=== PATIENT | male | born 2000 | race Caucasian/White ===

== ENCOUNTER 2023-08-05 10:11 | Outpatient (OUT) | payer OTHER, SELFPAY ==
--- NOTE | 2023-08-05 | XR_ITS ---
[address] [address] Patient Name: ADRIENNE JOSHI MRN: [id number] date: 2000 Sex: M Assigned Patient Location: [facility] Current Patient Location: RAD Accession/Order Number: [id number] Exam Date: 08/05/2023 10:50 Report Date: 08/05/2023 11:37 At the request of: ARMEN ALLRED Procedure: XR foot SAMREEN min 3V EXAMINATION: XR foot SAMREEN min 3V, XR ankle SAMREEN min 3V HISTORY: BILATERAL FOOT PAIN COMPARISON: 03/31/2020, 07/11/2016 FINDINGS: RIGHT FINDINGS: BONES: 38 degrees of hindfoot valgus. 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 Contour deformity of the distal tibia and fibula could represent degenerative or posttraumatic change. No acute fracture or dislocation SOFT TISSUES: Negative. No visible soft tissue swelling. OTHER: Negative. LEFT FINDINGS: BONES: No acute fracture or dislocation. 13 degrees of hindfoot valgus. Mild degenerative change. SOFT TISSUES: Negative. No visible soft tissue swelling. OTHER: Negative. XR/XR foot SAMREEN min 3V IMPRESSION: RIGHT CONCLUSION: Severe hindfoot valgus and severe tibiotalar joint arthritis with bony remodeling LEFT CONCLUSION: Mild hindfoot valgus and arthritis Electronically authenticated by: KATARINA MARTINS Date: 08/05/2023 11:37
--- NOTE | 2023-08-05 | XR_ITS ---
[address] [address] Patient Name: ADRIENNE JOSHI MRN: [id number] date: 2000 Sex: M Assigned Patient Location: [facility] Current Patient Location: RAD Accession/Order Number: [id number] Exam Date: 08/05/2023 10:50 Report Date: 08/05/2023 11:37 At the request of: ARMEN ALLRED Procedure: XR ankle SAMREEN min 3V EXAMINATION: XR foot SAMREEN min 3V, XR ankle SAMREEN min 3V HISTORY: BILATERAL FOOT PAIN COMPARISON: 03/31/2020, 07/11/2016 FINDINGS: RIGHT FINDINGS: BONES: 38 degrees of hindfoot valgus. 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 Contour deformity of the distal tibia and fibula could represent degenerative or posttraumatic change. No acute fracture or dislocation SOFT TISSUES: Negative. No visible soft tissue swelling. OTHER: Negative. LEFT FINDINGS: BONES: No acute fracture or dislocation. 13 degrees of hindfoot valgus. Mild degenerative change. SOFT TISSUES: Negative. No visible soft tissue swelling. OTHER: Negative. XR/XR ankle SAMREEN min 3V IMPRESSION: RIGHT CONCLUSION: Severe hindfoot valgus and severe tibiotalar joint arthritis with bony remodeling LEFT CONCLUSION: Mild hindfoot valgus and arthritis Electronically authenticated by: KATARINA MARTINS Date: 08/05/2023 11:37
== END 2023-08-05 10:12 | disposition home or self-care (01) ==
LOC: RAD 10:12
PROVIDERS: Visit Provider Podiatrist Foot & Ankle Surgery
DX: M25.572 Pain in left ankle and joints of left foot (principal); M21.072 Valgus deformity, not elsewhere classified, left ankle; M21.071 Valgus deformity, not elsewhere classified, right ankle
CPT/HCPCS: 73610; 73630

== ENCOUNTER 2023-08-12 08:10 | Outpatient (OUT) | payer OTHER, SELFPAY ==
--- NOTE | 2023-08-12 08:13 | CT_ITS ---
The [address] [address] Patient Name: ADRIENNE JOSHI MRN: [id number] date: 2000 Sex: M Assigned Patient Location: CT Current Patient Location: CT Accession/Order Number: [id number] Exam Date: 08/12/2023 08:20 Report Date: 08/12/2023 12:58 At the request of: ARMEN ALLRED Procedure: CT ankle RT wo con Exam Type: CT BILATERAL LOWER EXTREMITIES Exam Date and Time: 08/12/2023 8:20 AM EST Indication: 23 years old Male with chronic pain Comparison: Correlated with studies dating back to 2009 TECHNIQUE: Axial CT images of the bilateral lower extremities were obtained without intravenous contrast. Coronal and sagittal reformatted images were obtained. Dose reduction techniques were achieved by using automated exposure control and/or adjustment of mA and/or kV according to patient size and/or use of iterative reconstruction technique. FINDINGS: Right lower extremity: There is no acute displaced fracture identified. The knee appears congruent. Chronic appearing deformity involving the talus. There is some curvilinear sclerosis involving the lateral aspect of the lateral talar dome potentially reflecting underlying avascular necrosis. There is significant joint space narrowing, subchondral sclerosis and cystic changes. Persistent cortical cleft identified involving the posterior medial tibial plafond (series 7, image 4). Trace effusion is noted. Multiple well-corticated ossific bodies are present about the ankle. Overall, the findings of the tibiotalar joint are unchanged when compared with CT scan dated 03/31/2020. The subtalar joint is congruent with moderate osteoarthritis, which has also not significantly changed. The midfoot is congruent with mild to moderate osteoarthritis, most notable at the talonavicular and naviculocuneiform articulations. Note is made of multiple os peronei. The Lisfranc joint is congruent on this nonweightbearing study. Left lower extremity: No acute displaced fracture identified. The knee is congruent without joint effusion. The tibiotalar joint is congruent. Mild joint space narrowing. Diminutive appearance of the talar dome is present. The subtalar joint is congruent with moderate to severe osteoarthritis. The sinus tarsi is narrowed secondary to anterior marginal osteophytes of the posterior subtalar joint small well-corticated ossific bodies about the ankle are present. The midfoot is congruent with mild osteoarthritis. Lisfranc joint is congruent. Soft tissues are unremarkable. CT/CT ankle RT wo con IMPRESSION: 1. 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 No definite evidence of avascular necrosis. 2. Advanced osteoarthritis of the right tibiotalar with moderate to advanced right subtalar osteoarthritis. This has not really changed when compared with CT scan from 2019. 3. Moderate left tibiotalar osteoarthritis with advanced subtalar osteoarthritis. 4. Advanced midfoot osteoarthritis]. 5. No acute fracture identified. Electronically authenticated by: KEELEY CARVER Date: 08/12/2023 12:58
--- NOTE | 2023-08-12 09:29 | CT_ITS ---
The [address] [address] Patient Name: ADRIENNE JOSHI MRN: [id number] date: 2000 Sex: M Assigned Patient Location: CT Current Patient Location: CT Accession/Order Number: [id number] Exam Date: 08/12/2023 09:40 Report Date: 08/12/2023 12:58 At the request of: ARMEN ALLRED Procedure: CT ankle LT wo con Exam Type: CT BILATERAL LOWER EXTREMITIES Exam Date and Time: 08/12/2023 8:20 AM EST Indication: 23 years old Male with chronic pain Comparison: Correlated with studies dating back to 2009 TECHNIQUE: Axial CT images of the bilateral lower extremities were obtained without intravenous contrast. Coronal and sagittal reformatted images were obtained. Dose reduction techniques were achieved by using automated exposure control and/or adjustment of mA and/or kV according to patient size and/or use of iterative reconstruction technique. FINDINGS: Right lower extremity: There is no acute displaced fracture identified. The knee appears congruent. Chronic appearing deformity involving the talus. There is some curvilinear sclerosis involving the lateral aspect of the lateral talar dome potentially reflecting underlying avascular necrosis. There is significant joint space narrowing, subchondral sclerosis and cystic changes. Persistent cortical cleft identified involving the posterior medial tibial plafond (series 7, image 4). Trace effusion is noted. Multiple well-corticated ossific bodies are present about the ankle. Overall, the findings of the tibiotalar joint are unchanged when compared with CT scan dated 03/31/2020. The subtalar joint is congruent with moderate osteoarthritis, which has also not significantly changed. The midfoot is congruent with mild to moderate osteoarthritis, most notable at the talonavicular and naviculocuneiform articulations. Note is made of multiple os peronei. The Lisfranc joint is congruent on this nonweightbearing study. Left lower extremity: No acute displaced fracture identified. The knee is congruent without joint effusion. The tibiotalar joint is congruent. Mild joint space narrowing. Diminutive appearance of the talar dome is present. The subtalar joint is congruent with moderate to severe osteoarthritis. The sinus tarsi is narrowed secondary to anterior marginal osteophytes of the posterior subtalar joint small well-corticated ossific bodies about the ankle are present. The midfoot is congruent with mild osteoarthritis. Lisfranc joint is congruent. Soft tissues are unremarkable. CT/CT ankle LT wo con IMPRESSION: 1. 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 No definite evidence of avascular necrosis. 2. Advanced osteoarthritis of the right tibiotalar with moderate to advanced right subtalar osteoarthritis. This has not really changed when compared with CT scan from 2019. 3. Moderate left tibiotalar osteoarthritis with advanced subtalar osteoarthritis. 4. Advanced midfoot osteoarthritis]. 5. No acute fracture identified. Electronically authenticated by: KEELEY CARVER Date: 08/12/2023 12:58
== END 2023-08-12 08:11 | disposition home or self-care (01) ==
LOC: CT 08:10
PROVIDERS: Visit Provider Podiatrist Foot & Ankle Surgery
DX: M19.071 Primary osteoarthritis, right ankle and foot (principal)
CPT/HCPCS: 73700